=== PATIENT | male | born 1970 | race Caucasian/White ===

== ENCOUNTER 2025-01-08 19:22 | Emergency (ER) | payer BC ==
[2025-01-08 19:30] VITALS: BP 120/69; PULSE 94; RESP 20; TEMP 97.3; BMI 28.2
[2025-01-08] MEDS ORDERED: KETOROLAC TROMETHAMINE 30 MG/1 ML VIAL ONE (20:37)
[2025-01-08] MEDS ORDERED: ACETAMINOPHEN INJECTION 100 ML ONE (20:37)
[2025-01-08] MEDS ORDERED: ONDANSETRON 4 MG/2 ML VIAL ONE (20:37)
[2025-01-08 20:44] LABS: BASO % 0.1 % (0-2.0); EOS % 0.3 % (0-4.5); HEMATOCRIT 45.1 % (35.4-49); HEMOGLOBIN 15.4 GM/dL (11.7-16.9); LYMPH % 6.6 % (8-40); MCH 30.3 pg (25.7-33.7); MCHC 34.3 g/dl (32.0-35.9); MEAN CELL VOLUME 88.3 fl (80-96); MEAN PLT VOLUME 7.6 fl (7.5-11.1); MONO % 7.4 % (3.8-10.2); NEUT % 85.6 % (42.8-82.8); PLATELET COUNT 296 10^3/uL (134-434); WHITE BLOOD COUNT 10.7 K/mm3 (4.0-10.0)
[2025-01-08 20:47] LABS: EPI CELLS 23 /uL (0-25.1); HYALINE CASTS 135 /uL (0-3.1); PH,URINE 5.5 (5.0-8.0); URINE APPEARANCE TURBID; URINE BILIRUBIN 2+ (NEGATIVE); URINE COLOR ORANGE; URINE GLUCOSE (UA) NEGATIVE (NEGATIVE); URINE KETONE NEGATIVE (NEGATIVE); URINE LEUK ESTERASE 2+ (NEGATIVE); URINE NITRITE POSITIVE (NEGATIVE); URINE PROTEIN 3+ (NEGATIVE); URINE RBC 25758 /uL (0-23.9); URINE UROBILINOGEN 0.2 mg/dL (0.2-1.0); URINE WBC 11957 /uL (0-25.8)
[2025-01-08] MEDS: SODIUM CHLORIDE 0.9% 500 ML INFUS.BAG IV ONE (20:52)
[2025-01-08] MEDS: KETOROLAC TROMETHAMINE 30 MG/1 ML VIAL IVPUSH ONE (20:53)
[2025-01-08] MEDS: ONDANSETRON 4 MG/2 ML VIAL IVPUSH ONE (20:53)
[2025-01-08] MEDS: ACETAMINOPHEN 1000 MG/100 ML BAG IVPB ONE (20:53)
[2025-01-08 20:59] LABS: URINE BACTERIA 760.7 /uL (0-1359)
[2025-01-08 21:09] LABS: POTASSIUM 3.9 mmol/L (3.5-5.1)
[2025-01-08 21:10] LABS: CALCIUM 9.2 mg/dL (8.5-10.1)
[2025-01-08 21:11] LABS: BLOOD UREA NITROGEN 15.7 mg/dL (7-18)
[2025-01-08 21:14] LABS: CREATININE 1.2 mg/dL (0.55-1.3)
[2025-01-08 21:16] LABS: TOT PROT 7.4 g/dl (6.4-8.2)
[2025-01-08] MEDS ORDERED: CEFTRIAXONE 1 G/50 ML PREMIX 50 ML IVPB ONE (21:17)
[2025-01-08] MEDS ORDERED: cefTRIAXone SODIUM 1 GM VIAL ONE (21:19)
[2025-01-08] MEDS: CEFTRIAXONE 1 GM in DEXTROSE 5%-WATER - 50 ML IVPB ONE (22:13)
== END 2025-01-09 00:59 | disposition home or self-care (01) ==
LOC: JER 19:22
PROC: 3E03329 Introduction of Other Anti-infective into Peripheral Vein, Percutaneous Approach (ICD-10-PCS; principal; 2025-01-08)
PROC: 3E033NZ Introduction of Analgesics, Hypnotics, Sedatives into Peripheral Vein, Percutaneous Approach (ICD-10-PCS; 2025-01-08)
PROC: 3E0333Z Introduction of Anti-inflammatory into Peripheral Vein, Percutaneous Approach (ICD-10-PCS; 2025-01-08)
PROC: 3E033GC Introduction of Other Therapeutic Substance into Peripheral Vein, Percutaneous Approach (ICD-10-PCS; 2025-01-08)
DX: N39.9 Disorder of urinary system, unspecified (principal); R30.0 Dysuria; R10.30 Lower abdominal pain, unspecified; R31.9 Hematuria, unspecified; R39.15 Urgency of urination; R11.0 Nausea; R68.83 Chills (without fever)
CPT/HCPCS: 36415; 74176-TC; 80053; 81003; 85025; 87086; 87186; 99285-25; J0131